=== PATIENT | male | born 1980 | race Caucasian/White ===

== ENCOUNTER 2016-12-27 07:08 | Inpatient (IN) | payer BC ==
[~2016-12-27] VITALS: Ht 190.5 cm; Wt 188.3 kg
[2016-12-27 07:30] LABS: BASOPHIL % 0.4 % (0-2); PLATELET COUNT 309 x10^3mcL (130-400); RED CELL DISTRIBUTION WIDTH 13.6 % (11.5-14.5)
[2016-12-27 07:47] LABS: CARBON DIOXIDE 31 mmol/L (21-32); CHLORIDE SERUM 101 mmol/L (98-107); GFR1 > 60 mL/min; GLUCOSE SERUM 174 mg/dL (74-106); POTASSIUM SERUM 3.9 mmol/L (3.5-5.1); SODIUM SERUM 136 mmol/L (136-145)
[2016-12-27 07:48] LABS: CALCIUM 8.5 mg/dL (8.5-10.1)
[2016-12-27 07:50] LABS: ALBUMIN 3.7 g/dL (3.4-5.0); TOTAL PROTEIN, SERUM 8.2 g/dL (6.4-8.2)
[2016-12-27 07:51] LABS: ALKALINE PHOSPHATASE 70 U/L (46-116); ALT/SGPT 95 U/L (16-63); AST/SGOT 37 U/L (15-37); BILIRUBIN TOTAL 0.4 mg/dL (0.20-1.00)
[2016-12-27 09:11] VITALS: BP 150/93
[2016-12-27 10:02] LABS: CHOLESTEROL/HDL RATIO 5.7
[2016-12-27 10:05] LABS: T3 TOTAL 1.44 ng/mL
[2016-12-27 10:15] LABS: FREE T4 1.13 ng/dL (0.76-1.46); FREE THYROXINE INDEX 2.5 ug/dL (1.4-4.5); T4(THYROXINE) 8.3 ug/dL (4.7-13.3)
[2016-12-27 12:48] LABS: UA SPECIFIC GRAVITY 1.025 (1.005-1.035); microscopic required? YES; urine erythrocyte 2+ (NEGATIVE)
[2016-12-27 14:55] LABS: AMPHETAMINE QUAL UR NONE DETECTED (NEG <=1000)
[2016-12-27 17:33] VITALS: BP 125/75
[2016-12-27 21:24] VITALS: BP 148/54
[2016-12-28 05:44] VITALS: BP 144/72
[2016-12-28 07:13] LABS: BASOPHIL % 0.3 % (0-2); PLATELET COUNT 309 x10^3mcL (130-400); RED CELL DISTRIBUTION WIDTH 13.7 % (11.5-14.5)
[2016-12-28 07:31] LABS: CALCIUM 8.4 mg/dL (8.5-10.1); CARBON DIOXIDE 27.6 mmol/L (21-32); CHLORIDE SERUM 103 mmol/L (98-107); GFR1 > 60 mL/min; GLUCOSE SERUM 125 mg/dL (74-106); MAGNESIUM 1.9 mg/dL (1.8-2.4); PHOSPHOROUS 3.1 mg/dL (2.5-4.9); POTASSIUM SERUM 3.7 mmol/L (3.5-5.1); SODIUM SERUM 139 mmol/L (136-145)
[2016-12-28 08:26] VITALS: BP 150/90
[2016-12-28 11:53] VITALS: Ht 190.5 cm; Wt 188.3 kg
[2016-12-28 13:21] VITALS: BP 139/74
[2016-12-28] MEDS ORDERED: ZESTRIL20 MG PO (13:41)
[2016-12-28] MEDS ORDERED: CIPRO500 MG PO (13:42)
[2016-12-28] MEDS ORDERED: LAC PO (13:43)
[2016-12-28] MEDS ORDERED: METFORMIN HCL500 MG PO (13:44)
[2016-12-28] MEDS ORDERED: 1ST CHOICE LAN1 EACH XX (13:46)
[2016-12-28] MEDS ORDERED: TEST STRIPS1 EACH XX (13:46)
[2016-12-28] MEDS ORDERED: Glucometer XX (13:48)
[2016-12-28 13:49] VITALS: BP 139/74
== END 2016-12-28 15:17 | disposition home or self-care (01) | DRG 205 ==
LOC: ED 07:08 → DU 08:01
PROVIDERS: Emergency Medicine; ADMIT Family Medicine
DX: M94.0 Chondrocostal junction syndrome [Tietze] (principal); N17.0 Acute kidney failure with tubular necrosis; Z68.43 Body mass index [BMI] 50.0-59.9, adult; D68.69 Other thrombophilia; N39.0 Urinary tract infection, site not specified; E11.65 Type 2 diabetes mellitus with hyperglycemia; I48.91 Unspecified atrial fibrillation; I16.0 Hypertensive urgency; E78.2 Mixed hyperlipidemia; E66.01 Morbid (severe) obesity due to excess calories; Z87.891 Personal history of nicotine dependence; K80.20 Calculus of gallbladder without cholecystitis without obstruction
CPT/HCPCS: 80307; 82962; 83880; 84439; 85378; G0480; J0696; J1885; J2270; J2405; J3010; J7030; Q0092